=== PATIENT | female | born 1985 | race Caucasian/White ===

== ENCOUNTER 2017-08-29 14:58 | Outpatient (CLI) | payer BC ==
--- NOTE | 2017-08-29 15:51 | ULT ---
THYROID SONOGRAM: HISTORY: Enlarged thyroid gland. FINDINGS: Right thyroid lobe is 4.6 cm and the left is 4.7 cm. Isthmus is 0.5 cm. There is heterogeneous echo texture without focal mass apparent. IMPRESSION: No focal thyroid mass demonstrated. Thyroid gland is upper limits of normal in size. POS: [facility]
== END 2017-08-29 14:59 | disposition home or self-care (01) ==
LOC: SCSULT 14:58
PROVIDERS: ATTEND Otolaryngology Plastic Surgery within the Head & Neck
DX: R53.83 Other fatigue (principal)
CPT/HCPCS: 76536